=== PATIENT | female | born 1960 | race Caucasian/White ===

== ENCOUNTER → 2017-03-19 | Outpatient (CLI) | payer OTHER ==
[~2017-03-19] MED LIST: FLNIN NAE; LVQ/500 PO; NAPR1TAB9 PO; OXYC1TAB3 PO; PSEU30TA20 PO; TRAM-10 PO
== END | disposition home or self-care (01) ==
LOC: C.PAPS 09:00
PROVIDERS: ATTEND Internal Medicine
DX: Z12.4 Encounter for screening for malignant neoplasm of cervix (principal); Z78.0 Asymptomatic menopausal state

== ENCOUNTER → 2017-04-16 | Outpatient (CLI) | payer OTHER ==
--- NOTE | 2017-04-17 07:55 | MAMMOGRAPHY REPORT ---
BILATERAL DIGITAL SCREENING MAMMOGRAM TOMOSYNTHESIS WITH CAD: 04/16/2017 CLINICAL HISTORY: Routine screening. Patient has no complaints. TECHNIQUE: Breast tomosynthesis in addition to standard 2D mammography was performed. Current study was also evaluated with a Computer Aided Detection (CAD) system. COMPARISON: Comparison is made to exams dated: 06/29/2016 mammogram, 06/23/2015 mammogram, 05/31/2014 mammogram, 06/11/2013 mammogram, 06/04/2012 mammogram, and 05/11/2011 mammogram. BREAST COMPOSITION: There are scattered areas of fibroglandular density in both breasts. FINDINGS: No suspicious mass, architectural distortion or cluster of microcalcifications is seen. IMPRESSION: ACR BI-RADS CATEGORY 1: NEGATIVE There is no mammographic evidence of malignancy. A 1 year screening mammogram is recommended. The pa tient will receive written notification of the results. Approximately 10% of breast cancers are not detected with mammography. A negative mammographic report should not delay biopsy if a clinically suggestive mass is present. Delores mccullough/penquoc:04/16/2017 18:28:12 Lpn Rn: January DENISE(R)(M), [facility] letter sent: Normal 1/2 BI-RADS Code: ACR BI-RADS Category 1: Negative
== END | disposition home or self-care (01) ==
LOC: C.MAMM 13:45
PROVIDERS: ATTEND Internal Medicine
DX: Z12.31 Encounter for screening mammogram for malignant neoplasm of breast (principal)

== ENCOUNTER → 2017-05-22 | Outpatient (CLI) | payer OTHER ==
[~2017-05-22] MED LIST changes: -LVQ/500 PO; -OXYC1TAB3 PO; -TRAM-10 PO
[2017-05-22 12:58] LABS: BASO % 1.1 %; BASO ABS # 0.03 K/uL (0-0.2); COMPLETE YES; HEMATOCRIT 44.1 % (37-47); IG% 0.4 %; LYMPH % 36.7 %; LYMPH ABS # 1.02 K/uL (1.2-3.4); MEAN CELL VOLUME 94.8 fL (80-100); MEAN CORPUSCULAR HEMOGLOBIN 31.4 pg (25-34); MEAN CORPUSCULAR HGB CONC 33.1 g/dl (32-36); MEAN PLATELET VOLUME 10.7 fL (7.4-10.4); MONO % 15.5 %; NEUT % 46.3 %; PLATELET COUNT 169 K/uL (130-400); RED BLOOD COUNT 4.65 M/uL (4.2-5.4); WHITE BLOOD COUNT 2.78 K/uL (4.8-10.8)
[2017-05-22 13:11] LABS: ALT/SGPT 182 U/L (12-78); AST/SGOT 113 U/L (15-37); BLOOD UREA NITROGEN 6 mg/dl (7-18); BUN/CREATININE RATIO 9.5 (10-20); CALCIUM 9.1 mg/dl (8.5-10.1); CARBON DIOXIDE 26 mmol/L (21-32); CHLORIDE 107 mmol/L (98-107); CHOLESTEROL 150 mg/dl (0-200); CREATININE 0.61 mg/dl (0.60-1.20); GLUCOSE 109 mg/dl (70-99); POTASSIUM 3.8 mmol/L (3.5-5.1); SODIUM 140 mmol/L (136-145); TRIGLYCERIDES 153 mg/dl (0-150); VERY LOW DENSITY LIPOPROT CALC 31 mg/dl
[2017-05-22 13:34] LABS: ALKALINE PHOSPHATASE 808 U/L (45-117); CHOLESTEROL/HDL RATIO 6.3; HDL CHOLESTEROL 24 mg/dl
== END | disposition home or self-care (01) ==
LOC: C.LABSPEC 12:29
PROVIDERS: ATTEND Internal Medicine
DX: R53.83 Other fatigue (principal); Z00.01 Encounter for general adult medical examination with abnormal findings

== ENCOUNTER → 2017-05-24 | Outpatient (CLI) | payer OTHER ==
[~2017-05-24] MED LIST changes: +LVQ/500 PO; +OXYC1TAB3 PO; +TRAM-10 PO
--- NOTE | 2017-05-24 08:37 | DIAGNOSTIC IMAGING REPORT ---
ULTRASOUND RIGHT UPPER QUADRANT ABDOMEN CLINICAL HISTORY: Elevated hepatic transaminases. COMPARISON STUDY: No priors. TECHNIQUE: Real-time, grayscale, and color flow sonography of the right upper quadrant of the abdomen was performed. Images are reviewed in the transverse and longitudinal planes. FINDINGS: Liver: The liver is normal in size and echotexture. There is no intrahepatic biliary ductal dilatation. The main portal vein is patent. Gallbladder: The gallbladder is surgically absent. The common bile duct measures up to 0.7 cm in diameter. Pancreas: Visualized portions of the pancreatic head and body are normal in appearance. The splenic vein is patent. Right kidney: Survey images of the right kidney demonstrate normal size and echotexture. There is no hydronephrosis. Ascites: None. IMPRESSION: 1. The liver is normal in size and homogeneous in echotexture. 2. Status post cholecystectomy. Electronically signed by: Yaron Babb M.D. 05/24/2017 8:36 AM Dictated Date/Time: 05/24/2017 8:35 AM
== END | disposition home or self-care (01) ==
LOC: C.ULTR 07:43
PROVIDERS: ATTEND Internal Medicine
DX: R74.8 Abnormal levels of other serum enzymes (principal)

== ENCOUNTER → 2017-05-27 | Outpatient (CLI) | payer OTHER ==
[2017-05-27 18:47] LABS: HEPATITIS B AB NEG
[2017-05-27 19:40] LABS: LYME DISEASE AB IGG NEG (NEG)
[2017-05-27 19:45] LABS: LYME DISEASE AB IGM EQUIVOCAL (NEG)
[2017-05-31 09:31] LABS: 18KDIGG BAND NONREACTIVE (NONREACTIVE); 23KDIGG BAND NONREACTIVE (NONREACTIVE); 23KDIGM BAND REACTIVE (NONREACTIVE); 28KDIGG BAND NONREACTIVE (NONREACTIVE); 30KDIGG BAND NONREACTIVE (NONREACTIVE); 39KDIGG BAND NONREACTIVE (NONREACTIVE); 39KDIGM BAND NONREACTIVE (NONREACTIVE); 41KDIGG BAND NONREACTIVE (NONREACTIVE); 41KDIGM BAND REACTIVE (NONREACTIVE); 45KDIGG BAND NONREACTIVE (NONREACTIVE); 58KDIGG BAND NONREACTIVE (NONREACTIVE); 66KDIGG BAND REACTIVE (NONREACTIVE); 93KDIGG BAND NONREACTIVE (NONREACTIVE)
== END | disposition home or self-care (01) ==
LOC: C.LABSPEC 16:10
PROVIDERS: ATTEND Internal Medicine
DX: R94.5 Abnormal results of liver function studies (principal)

== ENCOUNTER 2017-05-28 11:41 | Emergency (ER) | payer OTHER ==
[~2017-05-28] VITALS: Ht 160 cm; Wt 57.8 kg
[~2017-05-28 11:41] MED LIST changes: -LVQ/500 PO; -OXYC1TAB3 PO; -TRAM-10 PO
[2017-05-28 11:49] VITALS: TEMP 36.9; Ht 160 cm; Wt 57.8 kg
[2017-05-28 12:31] LABS: BASO % 0.2 %; BASO ABS # 0.02 K/uL (0-0.2); COMPLETE YES; EOS % 1.3 %; HEMATOCRIT 44.6 % (37-47); IG% 0.5 %; LYMPH ABS # 2.85 K/uL (1.2-3.4); MEAN CELL VOLUME 93.9 fL (80-100); MEAN CORPUSCULAR HEMOGLOBIN 30.7 pg (25-34); MEAN CORPUSCULAR HGB CONC 32.7 g/dl (32-36); MEAN PLATELET VOLUME 9.5 fL (7.4-10.4); MONO % 14.7 %; NEUT % 53.3 %; PLATELET COUNT 531 K/uL (130-400); RED BLOOD COUNT 4.75 M/uL (4.2-5.4); WHITE BLOOD COUNT 9.51 K/uL (4.8-10.8)
[2017-05-28 12:40] LABS: PARTIAL THROMBOPLASTIN RATIO 1.1; PROTHROMBIN TIME (PATIENT) 10.5 SECONDS (9.0-12.0)
[2017-05-28 12:40] LABS: URINE APPEARANCE CLEAR (CLEAR); URINE BILIRUBIN NEG (NEG); URINE COLOR YELLOW; URINE NITRITE NEG (NEG); URINE SPECIFIC GRAVITY 1.015 (1.000-1.030); UROBILINOGEN NEG (NEG); ZZUR CULT IF INDIC CLEAN CATCH NO
[2017-05-28 12:44] LABS: MANUAL MICROSCOPIC REQUIRED? NO; REVIEW REQ? NO
[2017-05-28] MEDS ORDERED: LVQ/500 PO (13:04)
[2017-05-28] MEDS ORDERED: TRAM-10 PO (13:04)
[2017-05-28 13:11] LABS: ALT/SGPT 179 U/L (12-78); AST/SGOT 60 U/L (15-37); BLOOD UREA NITROGEN 13 mg/dl (7-18); BUN/CREATININE RATIO 18.6 (10-20); CALCIUM 9.1 mg/dl (8.5-10.1); CARBON DIOXIDE 27 mmol/L (21-32); CHLORIDE 105 mmol/L (98-107); CREATININE 0.71 mg/dl (0.60-1.20); GLUCOSE 87 mg/dl (70-99); MAGNESIUM 2.2 mg/dl (1.8-2.4); POTASSIUM 4.3 mmol/L (3.5-5.1); SODIUM 138 mmol/L (136-145)
[2017-05-28 13:22] LABS: ALB/GLOB RATIO 0.8 (0.9-2); ALKALINE PHOSPHATASE 576 U/L (45-117); THYROID STIMULATING HORMONE 0.843 uIu/ml (0.300-4.500)
[2017-05-28] MEDS ORDERED: OPTIRAY 320 IV PRN (14:15)
--- NOTE | 2017-05-28 15:05 | EMERGENCY ROOM VISIT NOTE ---
History First contact with patient: 11:53 Chief Complaint: ABDOMINAL PAIN Stated Complaint: ABD. PAIN Nursing Triage Summary: triage note; pt reports mid abd pain pt reports she had out pt lab work and ultrasound and pt was found to have elevated liver enzymes. History of Present Illness The patient is a 56 year old female who presents to the Emergency Room via private vehicle accompanied by son with complaints of "abdominal pain". The patient states that about 2 weeks ago she had a cough, and had symptoms of a cold, she then states that she had baseline labs performed by her family doctor , who noted that she had elevations of her liver enzymes. An ultrasound was ordered and performed this past Saturday. No abnormal findings noted. She states that she was given Levaquin for her congestion, and also tramadol by her family doctor for the upper abdominal pain which began on Saturday. She states that the pain is severe, and rates it as an 8/10. She declined any further pain medication at this time. She notes she would like to figure out what is causing her symptoms here today. She is post cholecystectomy 2000. In describes the pain as a severe ache/heavy ache. Review of Systems A complete 10-point Review of Systems was discussed with the patient, with pertinent positives and negatives listed in the History of Present Illness. All remaining Review of Systems questions can be considered negative unless otherwise specified. Past Medical/Surgical History Stomach problems, cholecystectomy, tubal ligation, left inguinal hernia repair, Crohn's disease, degenerative disc disease. Family History Diabetes, heart disease, high blood pressure, cancer, lung disease, cold but her disease Social History Smoking Status: Former Smoker Social History: Patient lives with self. Current/Historical Medications Scheduled Levofloxacin (Levofloxacin), 1 TAB PO DAILY Scheduled PRN Oxycodone Ir (Roxicodone Ir), 1-2 TAB PO Q4H PRN for Pain Tramadol (Ultram), 50 MG PO Q6H PRN for Pain Allergies Coded Allergies: Erythromycin (Verified Allergy, Intermediate, HIVES, 05/28/17) Naproxen (Unverified Allergy, Intermediate, GI SYMPTOMS, 05/28/17) Penicillins (Verified Allergy, Intermediate, HIVES, 05/28/17) Sulfa Drugs (Verified Allergy, Intermediate, HIVES, 05/28/17) Uncoded Allergies: DARVOCET (Allergy, Intermediate, HIVES, 06/17/13) COCONUT-HEADACHE (Allergy, Mild, MIGRAINE, 06/17/13) ONIONS (Allergy, Mild, MIGRAINES, 06/17/13) Physical Exam Vital Signs Date Time Temp Pulse Resp B/P (MAP) Pulse Ox O2 Delivery O2 Flow Rate FiO2 05/28/17 17:20 69 18 154/94 97 Room Air 05/28/17 15:11 67 18 142/97 98 Room Air 05/28/17 13:20 65 05/28/17 13:07 74 18 165/90 98 Room Air 05/28/17 11:49 36.9 84 18 150/92 96 Room Air Physical Exam VITAL SIGNS - Vital signs and nursing notes were reviewed. Stable. GENERAL -56-year-old female appearing her stated age who is in no acute distress but is visibly in pain. Communicates well with provider and answers questions appropriately. SKIN - Without rashes. Not jaundiced. HEAD - NC/AT. EYES - PERRL with EOMI bilaterally. Sclera anicteric. EARS - No deformities of external structures noted on gross examination bilaterally. NOSE - Midline and without cyanosis. No epistaxis or purulent drainage noted. MOUTH/OROPHARYNX - Without perioral cyanosis. LUNGS - Chest wall symmetric without accessory muscle use, intercostals retractions, or central cyanosis. Normal vesicular breath sounds CTA B/L. No wheezes, rales, or rhonchi appreciated. CARDIAC - RRR with S1/S2. No murmur, rubs, or gallops appreciated. ABDOMEN - Abdominal contour normal without pulsations or visible masses. BS normoactive all four quadrants. There is generalized abdominal tenderness, worse in the epigastric region. No palpable masses, hepatosplenomegaly, or ascites noted. EXTREMITIES - No clubbing or peripheral cyanosis. No pretibial edema present. NEUROLOGIC - Cranial nerves II through XII grossly intact. Medical Decision & Procedures ER Provider Diagnostic Interpretation: ABDOMEN AND PELVIS CT WITH IV AND ORAL CONTRAST CT DOSE: 395.01 mGycm HISTORY: Epigastric abdominal pain and diffuse abd pain TECHNIQUE: Multiaxial CT images of the abdomen and pelvis were performed following the use of intravenous and oral contrast. A dose lowering technique was utilized adhering to the principles of ALARA. COMPARISON STUDY: Abdominal ultrasound 05/24/2017. FINDINGS: Mild dependent changes at the lung bases posteriorly. No pneumoperitoneum. No pneumatosis. No fractures within the visualized osseous structures. Cholecystectomy. The liver, pancreas, spleen, adrenal glands, and left kidney are unremarkable. There is a 3 mm stone within the right kidney. No ureteral stones. No hydronephrosis. Mesenteric lymph nodes measure subcentimeter in short axis diameter with the largest lymph node measuring 7 mm. No significant retroperitoneal lymphadenopathy. The bladder, uterus, bilateral adnexa are unremarkable. Surgical clips within the left inguinal region suggests a prior hernia repair. No bowel wall thickening or obstruction. Normal appendix. Suspect a left paracentral/foraminal disc protrusion at L4-L5. IMPRESSION: 1. No bowel wall thickening or obstruction. 2. Normal appendix. 3. Right-sided nephrolithiasis. No ureteral stones. No hydronephrosis. 4. Left paracentral/foraminal disc protrusion at L4-5 resulting in severe left-sided neural foraminal narrowing. Electronically signed by: Juan Barron M.D. 05/28/2017 3:04 PM Dictated Date/Time: 05/28/2017 2:56 PM Laboratory Results 05/28/17 12:05 Red Blood Count 4.75, Mean Corpuscular Volume 93.9, Mean Corpuscular Hemoglobin 30.7, Mean Corpuscular Hemoglobin Concent 32.7, Mean Platelet Volume 9.5, Neutrophils (%) (Auto) 53.3, Lymphocytes (%) (Auto) 30.0, Monocytes (%) (Auto) 14.7, Eosinophils (%) (Auto) 1.3, Basophils (%) (Auto) 0.2, Neutrophils # (Auto ) 5.07, Lymphocytes # (Auto) 2.85, Monocytes # (Auto) 1.40, Eosinophils # (Auto ) 0.12, Basophils # (Auto) 0.02 05/28/17 12:05 Test 05/28/17 12:00 05/28/17 12:05 05/28/17 12:31 05/28/17 16:53 Urine Color YELLOW Urine Appearance CLEAR (CLEAR) Urine pH 6.0 (4.5-7.5) Urine Specific Darwin 1.015 (1.000-1.030) Urine Protein NEG (NEG) Urine Glucose (UA) NEG (NEG) Urine Ketones NEG (NEG) Urine Occult Blood NEG (NEG) Urine Nitrite NEG (NEG) Urine Bilirubin NEG (NEG) Urine Urobilinogen NEG (NEG) Urine Leukocyte Esterase NEG (NEG) White Blood Count 9.51 K/uL (4.8-10.8) Red Blood Count 4.75 M/uL (4.2-5.4) Hemoglobin 14.6 g/dL (12.0-16.0) Hematocrit 44.6 % (37-47) Mean Corpuscular Volume 93.9 fL (80-100) Mean Corpuscular Hemoglobin 30.7 pg (25-34) Mean Corpuscular Hemoglobin Concent 32.7 g/dl (32-36) Platelet Count 531 K/uL (130-400) Mean Platelet Volume 9.5 fL (7.4-10.4) Neutrophils (%) (Auto) 53.3 % Lymphocytes (%) (Auto) 30.0 % Monocytes (%) (Auto) 14.7 % Eosinophils (%) (Auto) 1.3 % Basophils (%) (Auto) 0.2 % Neutrophils # (Auto) 5.07 K/uL (1.4-6.5) Lymphocytes # (Auto) 2.85 K/uL (1.2-3.4) Monocytes # (Auto) 1.40 K/uL (0.11-0.59) Eosinophils # (Auto) 0.12 K/uL (0-0.5) Basophils # (Auto) 0.02 K/uL (0-0.2) RDW Standard Deviation 47.5 fL (36.4-46.3) RDW Coefficient of Variation 13.8 % (11.5-14.5) Immature Granulocyte % (Auto) 0.5 % Immature Granulocyte # (Auto) 0.05 K/uL (0.00-0.02) Prothrombin Time 10.5 SECONDS (9.0-12.0) Prothromb Time International Ratio 1.0 (0.9-1.1) Activated Partial Thromboplast Time 28.7 SECONDS (21.0-31.0) Partial Thromboplastin Ratio 1.1 Anion Gap 6.0 mmol/L (3-11) Est Creatinine Clear Calc Drug Dose 74.0 ml/min Estimated GFR () 111.1 Estimated GFR (Non- 95.9 BUN/Creatinine Ratio 18.6 (10-20) Calcium Level 9.1 mg/dl (8.5-10.1) Magnesium Level 2.2 mg/dl (1.8-2.4) Total Bilirubin 0.5 mg/dl (0.2-1) Aspartate Amino Transf (AST/SGOT) 60 U/L (15-37) Alanine Aminotransferase (ALT/SGPT) 179 U/L (12-78) Alkaline Phosphatase 576 U/L (45-117) Total Creatine Kinase 62 U/L (26-192) Creatine Kinase MB < 0.5 ng/ml (0.5-3.6) Creatine Kinase MB Ratio (0-3.0) Troponin I < 0.015 ng/ml (0-0.045) Total Protein 8.4 gm/dl (6.4-8.2) Albumin 3.8 gm/dl (3.4-5.0) Globulin 4.6 gm/dl (2.5-4.0) Albumin/Globulin Ratio 0.8 (0.9-2) Lipase 157 U/L (73-393) Thyroid Stimulating Hormone (TSH) 0.843 uIu/ml (0.300-4.500) Lactic Acid Level 1.1 mmol/L (0.4-2.0) Hepatitis C Antibody NEG (NEG) Medications Administered Medications (Trade) Dose Ordered Sig/Yousif Route Start Time Stop Time Status Last Admin Dose Admin Oxycodone HCl (Roxicodone Immediate Rel 5MG Home Pack) 1 [employer] STK-MED ONCE PO 05/28/17 17:29 05/28/17 17:30 DC 05/28/17 17:29 [facility] Patient was seen and evaluated as above. She presents to us today with epigastric abdominal pain, and elevated liver function testing. She has been seen by her family doctor, and is to see a GI specialist on the of this month. She notes she is here because the pain is worse. She declines pain medication upon entry. Previous visit was reviewed, as well as her previous labs that she furnishes as performed by her family doctor. It appears she has had mono testing and this was found to be positive, as well as one of the bands of the Lyme test with Western blot pending. There also appears to be alkaline phosphatase, AST and ALT elevation. Due to the amount of pain the patient was experiencing, I at this time will recommend CT scan of the abdomen and pelvis with IV and oral contrast. I did initially order a repeat ultrasound, but after discussing the ultrasound results with the ultrasound team, it appears that this was a successful ultrasound and that repeating would not be of any benefit. The ultrasound was then canceled. CT scan pending. The blood work then reveals no leukocytosis or concerning anemia. Platelet count has significantly increased and is now 531. Coags are normal. Patient's metabolic panel reveals AST at 60, ALT at 179, and alkaline phosphatase high at 576. These have all decreased compared to previous. Patient's troponin is negative. The patient's EKG is stable compared to previous. Lipase is normal, and TSH is also normal. I then discussed the case with the attending physician after obtaining the CT scan result which did not reveal any clear etiology of the patient's upper abdominal pain. Patient's back pain certainly can be explained by the spine results. Decision was made to then consult the GI specialist that the patient would like to follow up with on the . I then spoke on the phone with Dr. THIBODEAUX. He recommended that I obtain specific hepatitis A, B and C antibodies as well as antigens as well as AMA, DANN, CMP, and ceruloplasmin levels. I then checked the patient's record here and found some of the hepatitis tests, but not all therefore initiated these. I then received a call from Dr. Hanley, and we discussed how I had ordered many tests of which he had already ordered just a few days ago. I was unaware of this, as I was not able to see all of the tests that he ordered just a few days ago on my side of the [employer] system unfortunately. I then after speaking with him in detail, canceled the tests that he had already ordered (would be duplicated), and left only the tests that still need to be performed as recommended by the GI specialist. I then discussed with our supportive employment case manager whether or not the patient's GI specialist would participate with her insurance as this was certainly a concern by the patient. It was identified to be most likely would not, and the patient's family then called the back of the insurance card and identify that Dr. Trevor Armstrong, GI specialist in the area would participate with her insurance. I then enlisted the help of our supportive employment case manager to help establish an appointment for the patient. She is also to call her family doctor tomorrow , Dr. Caldera for further evaluation and management. It was recommended by Dr. Thibodeaux that the patient has repeat LFTs performed on Saturday to ensure that they're trending down as they are indicating today. The differentials as discussed with the GI specialist included but not limited to cholestasis, obstructive bile duct, among others. I did discuss the Tylenol usage with the patient, and although she has used some in the recent past, it does not appear that she has had any toxic levels to correlate with her levels seen today. Although the patient may have had alcohol consumption in the past, her elevation of the ALT higher than the AST indicates that this is probably from something other than alcohol use. Additionally, the patient at time of discharge notes that she would like something additional for pain, and given her state of problems in the past with ibuprofen, I will initiate oxycodone immediate release, as she states that the tramadol made her feel very odd, and it appears that she has had oxycodone without problem. She will be given a short course for the pain that is not managed by [id number] meds, but is important note that I recommend no Tylenol at this time because of the elevation of the liver enzymes, and certainly want to refrain from anything that can upset the stomach such as ibuprofen. This is why he chose the oxycodone. In addition, there were no red flags in the [place] drug monitoring system. The patient is to call her family doctor tomorrow, and return with any worsening of her symptoms. She appears stable for outpatient management. She was educated upon worrisome symptoms in which to return, had questions answered prior to discharge, and was discharged home in good condition. It was recommended the patient may begin a PPI. Case was discussed with the emergency Department attending physician. In evaluation treatment of this patient the following differential diagnoses radiographs: Cholestasis, common bile duct stone, pancreatitis, WI, PE, GERD, among others. Impression Primary Impression: Abdominal pain Departure Information Dispostion Home / Self-Care Condition GOOD Prescriptions Oxycodone Ir (Roxicodone Ir) 5 Mg Tab 1-2 TAB PO Q4H Y for Pain, #15 TAB For Initial Treatment Prov: Dominic Partida PA-C 05/28/17 Referrals Dario Hanson M.D. (PCP) Elliott Morrow D.O. Case, Trevor Deutsch D.O. Patient Instructions [facility] Additional Instructions You have been treated in the Emergency Department your Abdominal Pain. Laboratory results and imaging studies have ruled out any emergent causes for your abdominal pain which would warrant admission or surgery. Drink plenty of water and stay well hydrated. As with any trip to the Emergency Department, you should follow-up with your Primary Care Provider from today's visit. Please expect a phone call from our supportive employment case manager regarding an appointment with Dr. armstrong. Return to the emergency department if your symptoms persist despite treatment plan outlined above or if the following symptoms occur: increased fevers, chills , worsening nausea/vomiting, blood in your stool or urine. Please return with any new/concerning symptoms. Thank you for your time. Problem Qualifiers Primary Impression: Abdominal pain Abdominal location: epigastric Qualified Codes: R10.13 - Epigastric pain
[2017-05-28 17:20] VITALS: BP 154/94; PULSE 69; O2SAT 97
[2017-05-28] MEDS ORDERED: OXYCODONE IR HOME PACK PO ONE (17:29)
[2017-05-28] MEDS ORDERED: OXYC1TAB3 PO (17:32)
== END 2017-05-28 17:39 | disposition home or self-care (01) ==
LOC: C.EDB 11:42 → C.EDA 17:39
DX: R10.13 Epigastric pain (principal); R74.8 Abnormal levels of other serum enzymes; K50.90 Crohn's disease, unspecified, without complications; Z87.891 Personal history of nicotine dependence; Z90.49 Acquired absence of other specified parts of digestive tract; Z83.3 Family history of diabetes mellitus; Z82.49 Family history of ischemic heart disease and other diseases of the circulatory system

== ENCOUNTER → 2017-06-03 | Outpatient (CLI) | payer OTHER ==
[~2017-06-03] MED LIST changes: -FLNIN NAE; +LVQ/500 PO; -NAPR1TAB9 PO; +OXYC1TAB3 PO; -PSEU30TA20 PO; +TRAM-10 PO
[2017-06-03 15:52] LABS: ALKALINE PHOSPHATASE 319 U/L (45-117); ALT/SGPT 51 U/L (12-78); AST/SGOT 23 U/L (15-37)
== END | disposition home or self-care (01) ==
LOC: C.LABSPEC 14:29
PROVIDERS: ATTEND Internal Medicine
DX: R74.8 Abnormal levels of other serum enzymes (principal)

== ENCOUNTER → 2017-06-04 | Outpatient (CLI) | payer OTHER ==
--- NOTE | 2017-06-04 20:51 | DIAGNOSTIC IMAGING REPORT ---
ORBIT RADIOGRAPHS 3 VIEWS HISTORY: pre-MRI screening. COMPARISON: None. FINDINGS: There are no radiopaque foreign bodies identified within the orbits. IMPRESSION: No radiopaque foreign bodies identified within the orbits. Electronically signed by: Juan Barron M.D. 06/04/2017 8:50 PM Dictated Date/Time: 06/04/2017 8:49 PM
--- NOTE | 2017-06-04 21:57 | DIAGNOSTIC IMAGING REPORT ---
MRCP HISTORY: Generalized ABDOMINAL PAIN, ELEVATED LIVER ENZYMES TECHNIQUE: MRCP of the abdomen was performed without the use of intravenous contrast according to standard departmental protocol. COMPARISON STUDY: Abdomen and pelvis CT 05/28/2017. FINDINGS: The lung bases are clear. Cholecystectomy. The liver, spleen, adrenal glands, pancreas, and kidneys are unremarkable. No retroperitoneal lymphadenopathy. Normal caliber common bile duct measuring up to 6 mm. No filling defects within the common bile duct. The main pancreatic duct is also normal in course and caliber. No intrahepatic bile duct dilatation. IMPRESSION: 1. Normal caliber intra and extrahepatic bile ducts. No filling defects within the common bile duct. 2. Cholecystectomy. Electronically signed by: Juan Barron M.D. 06/04/2017 9:56 PM Dictated Date/Time: 06/04/2017 9:52 PM
== END | disposition home or self-care (01) ==
LOC: C.MRI 20:06
PROVIDERS: ATTEND Physician Assistant
DX: R10.2 Pelvic and perineal pain (principal); R74.8 Abnormal levels of other serum enzymes

== ENCOUNTER → 2017-07-01 | Day surgery (SDC) | payer OTHER ==
[2017-06-28 15:13] VITALS: Ht 161.3 cm; Wt 59.1 kg
[~2017-07-01] VITALS: Ht 161.3 cm; Wt 59.1 kg
[~2017-07-01] MED LIST changes: +LIDOCAINE HCL 2% 2 ML VIAL (20MG/ML) ONE; -LVQ/500 PO; +MIDAZOLAM HCL 1 MG/ML 2ML VIAL ONE; -OXYC1TAB3 PO; +PROPOFOL IV EMULSION 10 MG/ML 20 ML VIAL IV ONE; -TRAM-10 PO; +TYLER650 PO
--- NOTE | 2017-07-01 15:27 | Endo History and Physical ---
History & Physical Date of Service: Jul 01, 2017. Chief Complaint: ABDOMINAL PAIN Referring Physician: DR. LYLA BOONE History of Present Illness 56 yo CF who presents for EGD secondary to abdominal pain. Past Surgical History Hx Cardiac Surgery: No Hx Internal Defibrillator: No Hx Pacemaker: No Hx Abdominal Surgery: Yes (LITTLE, TUBAL LIGATION) Hx of Implantable Prosthesis: No Hx Post-Op Nausea and Vomiting: No Hx Cancer Surgery: No Hx Thoracic Surgery: No Hx Orthopedic: No Hx Urinary Tract Surgery: No Family History Polyp Social History Smoking Status: Current Every Day Smoker Hx Substance Use: No Hx Alcohol Use: Yes (OCCASIONAL) Allergies Coded Allergies: Erythromycin (Verified Allergy, Intermediate, RASH, 06/28/17) Naproxen (Verified Allergy, Intermediate, GI SYMPTOMS, 07/01/17) Penicillins (Verified Allergy, Intermediate, HIVES, 06/28/17) Sulfa Drugs (Verified Allergy, Intermediate, HIVES, 06/28/17) Uncoded Allergies: DARVOCET (Allergy, Intermediate, HIVES, 06/17/13) COCONUT-HEADACHE (Allergy, Mild, MIGRAINE, 06/17/13) ONIONS (Allergy, Mild, MIGRAINES, 06/17/13) Current Medications Reported Home Medications Medications Dose Route/Sig Max Daily Dose Days Date Category Tylenol Arthitis Ext Rel (Acetaminophen) 650 Mg Ertab 650 Mg PO Q8H PRN 06/28/17 Reported Vital Signs Weight (Kilograms): 59.09 Height (Feet): 5 Height (Inches): 3.5 Date Time Temp Pulse Resp B/P (MAP) Pulse Ox O2 Delivery O2 Flow Rate FiO2 07/01/17 15:12 37 67 18 116/84 (95) 97 Room Air Physical Exam General Appearance: WD/WN, no apparent distress Respiratory/Chest: Auscultation: breath sounds normal Cardiovascular: Heart Auscultation: RRR Abdomen: Bowel Sounds: normal Inspection & Palpation: soft, non-distended, no tenderness, guarding & rebound Assessment and Plan Assessment: 56 yo CF who presents for EGD secondary to abdominal pain. Plan: Proceed with EGD.
--- NOTE | 2017-07-01 16:42 | GI REPORT ---
Procedure Date: 07/01/2017 4:19 PM Procedure: Upper GI endoscopy Indications: Epigastric abdominal pain Medicines: Monitored Anesthesia Care Complications: No immediate complications. Estimated Blood Loss: Estimated blood loss: none. Procedure: Pre-Anesthesia Assessment: - Prior to the procedure, a History and Physical was performed, and patient medications and allergies were reviewed. The patient's tolerance of previous anesthesia was also reviewed. The risks and benefits of the procedure and the sedation options and risks were discussed with the patient. All questions were answered, and informed consent was obtained. Prior Anticoagulants: The patient has taken no previous anticoagulant or antiplatelet agents. ASA Grade Assessment: II - A patient with mild systemic disease. After reviewing the risks and benefits, the patient was deemed in satisfactory condition to undergo the procedure. After obtaining informed consent, the endoscope was passed under direct vision. Throughout the procedure, the patient's blood pressure, pulse, and oxygen saturations were monitored continuously. The scope was introduced through the mouth, and advanced to the second part of duodenum. The upper GI endoscopy was accomplished without difficulty. The patient tolerated the procedure well. Findings: The examined esophagus was normal. A medium-sized hiatus hernia was present. Biopsies were taken with a cold forceps in the gastric antrum for Helicobacter pylori testing. The examined duodenum was normal. Biopsies for histology were taken with a cold forceps for evaluation of celiac disease. Impression: - Normal esophagus. - Medium-sized hiatus hernia. - Normal examined duodenum. Biopsied. - Biopsies were taken with a cold forceps for Helicobacter pylori testing. Recommendation: - Resume previous diet. - Continue present medications. - Await pathology results. - Return to primary care physician as previously scheduled. Trevor Song DO 07/01/2017 4:42:22 PM This report has been signed electronically. Note Initiated On: 07/01/2017 4:19 PM I attest to the content of the Intraoperative Record and orders documented therein, exceptions below
--- NOTE | 2017-07-01 16:43 | Discharge Instructions ---
Endoscopy Patient Instructions Date / Procedure(s) Performed Jul 01, 2017. EGD Allergy Information Coded Allergies: Erythromycin (Verified Allergy, Intermediate, RASH, 06/28/17) Naproxen (Verified Allergy, Intermediate, GI SYMPTOMS, 07/01/17) Penicillins (Verified Allergy, Intermediate, HIVES, 06/28/17) Sulfa Drugs (Verified Allergy, Intermediate, HIVES, 06/28/17) Uncoded Allergies: DARVOCET (Allergy, Intermediate, HIVES, 06/17/13) COCONUT-HEADACHE (Allergy, Mild, MIGRAINE, 06/17/13) ONIONS (Allergy, Mild, MIGRAINES, 06/17/13) Discharge Date / Findings Jul 01, 2017. Hiatal hernia Medication Instructions OK to resume all medications today as prescribed Reported Home Medications Medications Dose Route/Sig Max Daily Dose Days Date Category Tylenol Arthitis Ext Rel (Acetaminophen) 650 Mg Ertab 650 Mg PO Q8H PRN 06/28/17 Reported Provider Instructions Activity Restrictions - No exercising or heavy lifting for 24 hours. - Do not drink alcohol the day of the procedure. - Do not drive a car or operate machinery until the day after the procedure. - Do not make any important decisions or sign important papers in 24 hours after the procedure. Following Day: - Return to full activity which may include returning to work/school. Diet Start your diet with liquids and light foods (jello, soup, juice, toast). Then eat your usual diet if not nauseated. Treatment For Common After Affects For mild abdominal pain, bloating, or excessive gas: - Rest - Eat lightly - Lie on right side Follow-Up Information Follow-up with DR. LYLA BOONE as scheduled Anesthesia Information What You Should Know You have had a procedure that required some medicine to reduce anxiety and discomfort. This treatment is called moderate sedation. After receiving the treatment, you may be sleepy, but you will be able to breathe on your own. The effects of the treatment may last for several hours. Follow these instructions along with Activity/Diet recommendations noted above: * Do NOT do anything where dizziness or clumsiness would be dangerous. * Rest quietly at home today, then you can be up and about tomorrow. * Have a responsible person stay with you the rest of today. * You may have had an I.V. today. If so, you may take the dressing off later today. Recommendations Call your doctor if: * Trouble breathing * Continuous vomiting for more than 24 hours * Temperature above 101 degrees * Severe abdominal pain or bloating * Pain not relieved by pain medicine ordered * There is increased drainage or redness from any incision * A large amount of rectal bleeding greater than 2-3 tablespoons. (If you had a polyp/s removed or have hemorrhoids, a small amount of blood - from the rectum is to be expected.) * You have any unanswered questions or concerns. IN THE EVENT OF A SERIOUS EMERGENCY, GO TO THE NEAREST EMERGENCY ROOM Your discharge instructions were prepared by provider Trevor Song. Patient Instructions Signature Page Luz Larson Patient (or Guardian) Signature/Date: I have read and understand the instructions given to me by my caregivers. Caregiver/RN/Doctor Signature/Date: The above-named patient and/or guardian has received patient instructions on this date. + Original Patient Signature Page (only) stays with chart. Please make copy for patient.
--- NOTE | 2017-07-01 17:02 | Anesthesiology Progress Note ---
Anesthesia Post Op Note Date & Time Jul 01, 2017 at 17:02 Vital Signs Pain Intensity: 0 Vital Signs Past 12 Hours Date Time Temp Pulse Resp B/P (MAP) Pulse Ox O2 Delivery O2 Flow Rate FiO2 07/01/17 16:45 67 20 94/55 (68) 97 Room Air 07/01/17 15:12 37 67 18 116/84 (95) 97 Room Air Notes Mental Status: alert / awake / arousable, participated in evaluation Pt Amnestic to Procedure: Yes Nausea / Vomiting: adequately controlled Pain: adequately controlled Airway Patency, RR, SpO2: stable & adequate BP & HR: stable & adequate Hydration State: stable & adequate Anesthetic Complications: no major complications apparent
[2017-07-01 17:17] VITALS: BP 125/79; PULSE 65; O2SAT 97
== END | disposition home or self-care (01) ==
LOC: C.GI 14:15
PROVIDERS: ATTEND Internal Medicine
DX: R10.13 Epigastric pain (principal); K44.9 Diaphragmatic hernia without obstruction or gangrene; M19.90 Unspecified osteoarthritis, unspecified site; Z90.49 Acquired absence of other specified parts of digestive tract; Z98.51 Tubal ligation status; F17.200 Nicotine dependence, unspecified, uncomplicated; Z88.0 Allergy status to penicillin; Z88.1 Allergy status to other antibiotic agents; Z88.2 Allergy status to sulfonamides

== ENCOUNTER → 2017-07-22 | Outpatient (CLI) | payer OTHER ==
[~2017-07-22] MED LIST changes: -LIDOCAINE HCL 2% 2 ML VIAL (20MG/ML) ONE; -MIDAZOLAM HCL 1 MG/ML 2ML VIAL ONE; -PROPOFOL IV EMULSION 10 MG/ML 20 ML VIAL IV ONE
[2017-07-22 19:27] LABS: ALKALINE PHOSPHATASE 140 U/L (45-117); ALT/SGPT 41 U/L (12-78); AST/SGOT 32 U/L (15-37)
== END | disposition home or self-care (01) ==
LOC: C.LABSPEC 13:15
PROVIDERS: ATTEND Internal Medicine
DX: R74.8 Abnormal levels of other serum enzymes (principal)

== ENCOUNTER 2025-05-21 15:20 | Observation (INO) ==
--- NOTE | 2025-05-21 16:13 | Emergency Department Note ---
Impression & Plan Intractable nausea and vomiting, Gastroenteritis, Intractable diarrhea, Hypomagnesemia ED Provider Note HISTORY OF PRESENT ILLNESS: Patient is a 64-year-old female presenting with nausea and diarrhea. Patient reports she has been sick for the last 10 days and not getting any better. She has been seen twice previously in the emergency department. She states that the antinausea medications that she was given most recently on her ER visit have not helped. She reports she continues to be nauseous and have profuse episodes of vomiting. Reports she has been trying to stay hydrated but is so nauseous it is hard to stay hydrated. She denies any dysuria or hematuria. Denies any fevers. She denies any recent travel. She reports generalized abdominal pain but reports its secondary to her frequent bowel movements. She denies any chest pain or shortness of breath. ROS: as above PHYSICAL EXAM: Constitutional: Patient appears in no acute distress. HENT: Head: Normocephalic and atraumatic. Eyes: EOMI, PERRL Mouth/Throat: Mucous membranes moist. Neck: Trachea midline. Neck supple. Cardiovascular: RRR, No murmurs, rubs or gallops. Intact distal pulses. Pulmonary/Chest: No respiratory distress. Breath sounds clear and equal bilaterally. No wheezes or rales. Abdominal: Abdomen soft, no tenderness, rebound or guarding. Musculoskeletal: No edema, tenderness or deformity noted. Skin: Warm and dry. No rash, erythema, pallor or cyanosis Psychiatric: Appropriate mood and affect for situation. Neurological: Alert and keenly responsive. CN II-XII grossly intact, moving all extremities equally and fully. MDM: - Vitals signs showed hypertension - History obtained via patient. History as above. - Chronic conditions affecting care: None - Differential diagnoses include, but are not limited to: Electrolyte abnormality; dehydration; bowel obstruction; UA; viral syndrome - Order placed for continuous cardiac monitoring. At this time, monitor showed rate of 64 bp with normal sinus rhythm, per my interpretation. - External medical records reviewed. Hospitalist consult note dated 05/18/2025 was reviewed. Patient's workup in the emergency department was grossly unremarkable. It was recommended that she be discharged home and follow-up with outpatient telehealth in the next 24 to 48 hours. She was prescribed Zofran 4 mg ODT. - Laboratory workup interpreted by myself showed normal WBC; hypomagnesemia (Mg 1.6); normal AST/ALT; normal lipase; normal troponin - UA negative for infection - C diff and stool PCR ordered. - Patient given 1L NS, 5 mg IV compazine, 12.5 mg IV benadryl for nausea. Given 1g IV magnesium for electrolyte replacement. - Patient reports feeling unwell and unable to go home, given that she has tried outpatient management over the last week without any improvement in symptoms. Will discuss case with hospitalist service. -Considered obtaining CT abdomen/pelvis, however the patient has no significant reproducible abdominal pain on examination and just had a negative CT scan during her visit in the ER a few days ago. - Discussion was had with dependency case manager about patient's case and need for admission - Hospitalist consulted for admission - Patient admitted to [facility] hospitalist service for further evaluation and management. ASSESSMENT AND PLAN: Diagnosis: Intractable nausea and vomiting; intractable diarrhea; gastroenteritis; hypomagnesemia Plan: Admit Past Med/Surg History Problem List (Updated 05/21/25 @ 17:30 by Michelle Britt MD) Hypomagnesemia (Acute) Intractable diarrhea (Acute) Gastroenteritis (Acute) Intractable nausea and vomiting (Acute) Gastroenteritis (Acute) Intractable nausea and vomiting (Acute) Dehydration (Acute) COVID-19 (Acute) Neck mass Otitis externa Lyme disease Abdominal pain (Acute) Social History Smoking Status: Current every day smoker Tobacco Type: E-cigarettes / Vaping Preferred Language: Taiwanese marital status: current occupational status: employed Feels Safe at Home: Yes Allergies Allergies Allergy/AdvReac Type Severity Reaction Status Date / Time erythromycin base Allergy Intermediate RASH Verified 05/21/25 17:16 naproxen Allergy Intermediate GI SYMPTOMS Verified 05/21/25 17:16 Penicillins Allergy Intermediate HIVES Verified 05/21/25 17:16 Sulfa (Sulfonamide Allergy Intermediate HIVES Verified 05/21/25 17:16 Antibiotics) acetaminophen Allergy Mild Hives Verified 04/28/25 08:09 [From Darvocet-N] propoxyphene Allergy Mild Hives Verified 05/21/25 17:16 [From Darvocet-N] coconut AdvReac Mild Migraine Verified 05/21/25 17:16 onion AdvReac Mild Migraine Verified 05/21/25 17:16 Home Meds Home Medications Medication Instructions Recorded Confirmed No Known Home Medications 05/21/25 05/21/25 Results & Data (ED) Vital Signs Vital Signs - 24 hr 05/21/25 15:20 05/21/25 15:20 05/21/25 16:13 Temperature 36.7 C Temperature Source Oral Pulse Rate 74 68 Pulse Rate [Finger] Respiratory Rate 18 18 19 Blood Pressure 172/97 H Blood Pressure [Right Arm] Blood Pressure Mean 122 Blood Pressure Mean [Right Arm] Blood Pressure Position [Right Arm] Pulse Oximetry 98 99 Oxygen Delivery Method Room Air Sepsis Recent Fever Within 48 Hours No Sepsis New/Unexplained Change in Mental Status N/A Sepsis Action Taken by Nursing No Action Required 05/21/25 16:16 05/21/25 17:32 Temperature Temperature Source Pulse Rate 62 Pulse Rate [Finger] 65 Respiratory Rate 18 Blood Pressure Blood Pressure [Right Arm] 153/80 H Blood Pressure Mean Blood Pressure Mean [Right Arm] 104 Blood Pressure Position [Right Arm] Sitting Pulse Oximetry 95 Oxygen Delivery Method Room Air Sepsis Recent Fever Within 48 Hours Sepsis New/Unexplained Change in Mental Status Sepsis Action Taken by Nursing Laboratory Data 05/21/25 Unknown 05/21/25 Unknown Lab Results 05/21/25 Range/Units Unknown WBC 9.62 (4.8-10.8) K/ul RBC 4.21 (4.20-5.40) M/uL Hgb 13.0 (12.0-16.0) g/dl Hct 37.7 (37.0-47.0) % MCV 89.5 (80.0-100.0) fL MCH 30.9 (25.0-34.0) pg MCHC 34.5 (32.0-36.0) g/dL RDW Std Deviation 39.4 (36.4-46.3) fL RDW Coeff of Annmarie 12.0 (11.5-14.5) % Plt Count 296 (130-400) K/uL MPV 9.8 (9.4-12.4) fL Immature Gran % (Auto) 0.3 % Neut % (Auto) 61.5 % Lymph % (Auto) 27.9 % [place] % (Auto) 9.9 % Eos % (Auto) 0.2 % Baso % (Auto) 0.2 % Neut # (Auto) 5.92 (1.40-6.50) K/uL Lymph # (Auto) 2.68 (1.20-3.40) K/uL [place] # (Auto) 0.95 H (0.11-0.59) K/uL Eos # (Auto) 0.02 (0.00-0.50) K/uL Baso # (Auto) 0.02 (0.00-0.20) K/uL Immature Gran # (Auto) 0.03 (0.01-0.20) K/uL PT 11.4 (9.0-12.0) Seconds INR 1.1 (0.9-1.1) Sodium 133 L (136-145) mmol/L Potassium 3.6 (3.5-5.1) mmol/L Chloride 98 (98-107) mmol/L Carbon Dioxide 28 (21-32) mmol/L Anion Gap 7 (3-11) BUN 5 L (6-23) mg/dl Creatinine 0.75 (0.6-1.2) mg/dl Est Cr Clr Drug Dosing 63.5 ml/min eGFR 89.40 BUN/Creatinine Ratio 6.7 L (10-20) Glucose 103 H (70-99(Fasting)) mg/dl Calcium 9.3 (8.6-10.3) mg/dl Magnesium 1.6 L (1.7-2.4) mg/dl Total Bilirubin 0.7 (0.2-1.0) mg/dl AST 23 (13-39) U/L ALT 20 (7-52) U/L Alkaline Phosphatase 95 (34-104) U/L Troponin I High Sens 4.2 (0-14) pg/ml Total Protein 7.0 (6.0-8.3) gm/dl Albumin 4.3 (3.4-5.0) gm/dl Globulin 2.7 (2.5-4.0) gm/dl Albumin/Globulin Ratio 1.6 (0.9-2) Lipase 13 (11-82) U/L Urine Color Yellow Urine Appearance Clear (Clear) Urine pH 7.0 (4.5-7.5) Ur Specific [place] 1.001 (1.000-1.030) Urine Protein Negative (Negative) Urine Glucose (UA) Negative (Negative) Urine Ketones Negative (Negative) Urine Blood Negative (Negative) Urine Nitrite Negative (Negative) Urine Bilirubin Negative (Negative) Urine Urobilinogen Negative (Negative) Ur Leukocyte Esterase Negative (Negative) Urine Comment Administered Medications Discontinued Medications Diphenhydramine HCl (Diphenhydramine 50 Mg/Ml Vial) 12.5 mg IV NOW STA Stop: 05/21/25 16:24 Last Admin: 05/21/25 16:30 Dose: 12.5 mg Documented By: SHANTELL Sodium Chloride (Nss) 1,000 mls @ 999 mls/hr IV .Q1H1M ONE Stop: 05/21/25 17:16 Last Admin: 05/21/25 16:31 Dose: 999 mls/hr Documented By: SHANTELL Prochlorperazine (Compazine) 1 mls @ 1 mls/min IV ONE ONE Stop: 05/21/25 16:17 Last Admin: 05/21/25 16:30 Dose: 1 mls/min Documented By: SHANTELL Diphenhydramine HCl 12.5 mg/ (Syringe) 0.25 mls @ 1 mls/hr IV NOW STA Stop: 05/21/25 16:30 Last Admin: 05/21/25 16:25 Dose: Not Given Documented By: SHANTELL Magnesium Sulfate/Dextrose (Magnesium Sulfate / D5w) 1 gm in 100 mls @ 100 mls/hr IV NOW STA Stop: 05/21/25 17:46 Last Admin: 05/21/25 17:29 Dose: 100 mls/hr Documented By: FATMATA Discharge Plan Visit Data Chief Complaint: Flu Like Symptoms Stated Complaint: COVID ED Provider: Michelle Britt Discharge Problem: Intractable nausea and vomiting, Gastroenteritis, Intractable diarrhea, Hypomagnesemia Condition: Fair Forms Stand Alone [facility] Prescriptions Prescriptions: No Action No Known Home Medications Referrals Referrals: Roseanna Calles PA-C [Primary Care Provider] -
[2025-05-21 16:27] LABS: Hematocrit (blood only) 37.7 % (37.0-47.0); Hemoglobin 13.0 g/dl (12.0-16.0); Immature Granulocytes # (auto) 0.03 K/uL (0.01-0.20); Immature Granulocytes % (auto) 0.3 %; Mean Corpuscular Hemoglobin 30.9 pg (25.0-34.0); Mean Corpuscular Volume 89.5 fL (80.0-100.0); Platelet Count 296 K/uL (130-400); RDW Standard Deviation 39.4 fL (36.4-46.3); Red Blood Count 4.21 M/uL (4.20-5.40); White Blood Count 9.62 K/ul (4.8-10.8)
[2025-05-21 16:29] LABS: Appearance Urine Clear (Clear); Glucose Urine UA Negative (Negative)
[2025-05-21] MEDS: diphenhydrAMINE 50 MG/ML VIAL IV STA (16:30)
[2025-05-21] MEDS: PROCHLORPERAZINE 1 ML IV ONE (16:30)
[2025-05-21] MEDS: SODIUM CHLORIDE 0.9% 1,000 ML IV ONE (16:31)
[2025-05-21 16:46] LABS: Alanine Aminotransferase 20.0 U/L (7-52); Albumin Globulin Ratio 1.6 (0.9-2); Albumin Level 4.3 gm/dl (3.4-5.0); Alkaline Phosphatase 95.0 U/L (34-104); Anion Gap 7.0 (3-11); Bilirubin,Total 0.7 mg/dl (0.2-1.0); Blood Urea Nitrogen 5.0 mg/dl (6-23); Calcium 9.3 mg/dl (8.6-10.3); Carbon Dioxide 28.0 mmol/L (21-32); Chloride 98.0 mmol/L (98-107); Creatinine Clr Calc Pharmacy 63.5 ml/min; Globulin 2.7 gm/dl (2.5-4.0); Glucose 103.0 mg/dl (70-99(Fasting)); Lipase 13.0 U/L (11-82); Magnesium 1.6 mg/dl (1.7-2.4); Potassium 3.6 mmol/L (3.5-5.1); Sodium 133.0 mmol/L (136-145); Total Protein 7.0 gm/dl (6.0-8.3)
[2025-05-21 16:59] LABS: INR 1.1 (0.9-1.1); Prothrombin Time 11.4 Seconds (9.0-12.0)
[2025-05-21] MEDS: MAGNESIUM SULFATE / D5W 1 GM/100 ML BAG IV STA (17:29)
[2025-05-21] MEDS ORDERED: ACETAMINOPHEN 325 MG TAB PO PRN (17:48)
[2025-05-21] MEDS ORDERED: PROCHLORPERAZINE 10 MG in SYRINGE 8 ML IV PRN (17:53)
--- NOTE | 2025-05-21 18:04 | History & Physical Report ---
Date of Service May 21, 2025 Assessment & Plan (1) Intractable nausea and vomiting: Plan: -likely 2nd to COVID viral gastroenteritis -symptomatic treatment -zofran/compazine -IVF -F/U BMP (2) Gastroenteritis: Plan: -protonix IV -IVF (3) COVID-19: Plan: -supportive care Plan Heparin SQ for DVT px History of Present Illness Chief Complaint: nausea, vomiting Primary Care Provider: Roseanna Stevan Pt is a 64 y/o female with no significant PMH who presents with with 10 days of feeling nausea and vomiting. She was seen twice in the ER, found to be COVID + 05/18, CT a/p negative for any acute pathology. Her labs do not show any acute abnormalities. She has been having intractable nausea/vomiting and unable to tolerate any PO. Pt is being admitted for further treatment of intractable symptoms of likely viral gastroenteritis. Allergies Allergy/AdvReac Type Severity Reaction Status Date / Time erythromycin base Allergy Intermediate RASH Verified 05/21/25 17:16 naproxen Allergy Intermediate GI SYMPTOMS Verified 05/21/25 17:16 Penicillins Allergy Intermediate HIVES Verified 05/21/25 17:16 Sulfa (Sulfonamide Allergy Intermediate HIVES Verified 05/21/25 17:16 Antibiotics) acetaminophen Allergy Mild Hives Verified 04/28/25 08:09 [From Darvocet-N] propoxyphene Allergy Mild Hives Verified 05/21/25 17:16 [From Darvocet-N] coconut AdvReac Mild Migraine Verified 05/21/25 17:16 onion AdvReac Mild Migraine Verified 05/21/25 17:16 Home Medications Medication Instructions Recorded Confirmed Type No Known Home Medications 05/21/25 05/21/25 History Past Med/Surg History Problem List (Updated 05/21/25 @ 17:30 by Michelle Britt MD) Hypomagnesemia (Acute) Intractable diarrhea (Acute) Gastroenteritis (Acute) Intractable nausea and vomiting (Acute) Gastroenteritis (Acute) Intractable nausea and vomiting (Acute) Dehydration (Acute) COVID-19 (Acute) Neck mass Otitis externa Lyme disease Abdominal pain (Acute) Social History Smoking Status: Current every day smoker Tobacco Type: E-cigarettes / Vaping Preferred Language: [place] marital status: current occupational status: employed Feels Safe at Home: Yes Review of Systems Review of Systems: CONST: Negative for fever, body aches and chills. HENT: Negative for neck pain/stiffness, headache, congestion, sore throat, swelling. EYES: Negative for discharge/pain or vision changes. RESP: Negative for cough/hemoptysis and shortness of breath. CV: Negative chest pain, difficulty breathing, palpitations. ABD: Negative pain, +nausea, vomiting, diarrhea. : Negative increase frequency, dysuria, blood in urine or stool. MUSC: Negative for muscle aches, edema. SKIN: Negative rash, lesions/sores. NEURO: Negative headache, dizziness, weakness. Physical Exam Physical Exam: GENERAL APPEARANCE NAD, activity normal for age, well developed/ well nourished, no cyanosis, pallor, or diaphoresis. EYES lids/conjunctiva normal. EARS/NOSE/THROAT Mucous membranes moist, nares normal, lips/teeth normal uvula midline without oral pharyngeal erythema, exudate or swelling TMs normal bilaterally. No lymphangitis/lymphedema. HEAD/NECK normocephalic atraumatic, no facial trauma, neck is supple. RESPIRATORY respiratory effort normal, speaks in full sentences, no tripod position, no accessory muscle use. Lungs clear to auscultation without rhonchi, wheezes, rales CARDIAC Regular rate and rhythm, no edema. ABDOMINAL Soft, ND/NT. No evidence of fluid wave. No pulsatile masses on exam, rebound tenderness, Pickett sign or pain over Mcburney's point. MUSCLES/EXTREMITIES No abnormal range of motion, no swelling. SKIN Warm, pink and dry. No rashes, dermatoses, petechiae or lesions. NEUROLOGICAL Speech is clear and appropriate. Normal level of consciousness. Gait and coordination are normal. 5/5 strength in all extremities. PSYCH Normal mood and affect. Judgement/competence is appropriate Results & Data Results & Data Vital Signs (Past 12 Hours) Vital Signs Temp Pulse Pulse Resp BP BP Pulse Ox 05/21/25 17:32 65 18 153/80 H 95 05/21/25 16:16 62 05/21/25 16:13 68 19 99 05/21/25 15:20 18 05/21/25 15:20 36.7 C 74 18 172/97 H 98 O2 Del Method 05/21/25 17:32 Room Air 05/21/25 16:16 05/21/25 16:13 Room Air 05/21/25 15:20 05/21/25 15:20 PG Care Time/CCT Total # of Minutes Spent Total Time Spent with Patient: Total time spent is greater than 50% in coordination of care (as documented) at patient's floor/unit and/or counseling patient: Coding Level of Care Code 73663 INT INP/OBS CARE 2/55MIN Diagnoses Intractable nausea and vomiting R11.2 Gastroenteritis K52.9 COVID-19 U07.1
[2025-05-21] MEDS: PANTOprazole 40 MG/10 ML SYR IV SCH (18:38)
[2025-05-21] MEDS: SODIUM CHLORIDE 0.9% 1,000 ML IV SCH (18:38)
[2025-05-21] MEDS: HEPARIN SOD 5,000 UNIT/0.5 ML VIAL SQ SCH (21:41)
[2025-05-22] MEDS: ONDANSETRON INJ 2 MG/ML 2 ML VIAL IV PRN (06:02)
[2025-05-22 06:26] LABS: Hematocrit (blood only) 34.7 % (37.0-47.0); Hemoglobin 11.8 g/dl (12.0-16.0); Mean Corpuscular Hemoglobin 31.1 pg (25.0-34.0); Mean Corpuscular Volume 91.6 fL (80.0-100.0); Platelet Count 269 K/uL (130-400); RDW Standard Deviation 40.7 fL (36.4-46.3); Red Blood Count 3.79 M/uL (4.20-5.40); White Blood Count 5.84 K/ul (4.8-10.8)
[2025-05-22 06:56] LABS: Anion Gap 5.0 (3-11); Blood Urea Nitrogen 7.0 mg/dl (6-23); Calcium 8.4 mg/dl (8.6-10.3); Carbon Dioxide 27.0 mmol/L (21-32); Chloride 110.0 mmol/L (98-107); Creatinine Clr Calc Pharmacy 65.3 ml/min; Glucose 111.0 mg/dl (70-99(Fasting)); Potassium 3.5 mmol/L (3.5-5.1); Sodium 142.0 mmol/L (136-145)
[2025-05-22 07:28] LABS: Adenovirus F 40/41 PCR Not Detected (NotDetected); Campylobacter PCR Not Detected (NotDetected); Enteroaggregative E.coli(EAEC) Not Detected (NotDetected); Shiga-like Toxin E.coli (STEC) Not Detected (NotDetected); Vibrio species PCR Not Detected (NotDetected)
[2025-05-22] MEDS: CIPROFLOXACIN / D5W 400 MG/200 ML BAG IV SCH (09:15)
--- NOTE | 2025-05-22 09:58 | Hospitalist Progress Note ---
Date of Service May 22, 2025 Assessment & Plan (1) Intractable nausea and vomiting: Plan: -stool + for Yersinia -cipro 400mg IV Q12 started -symptomatic treatment -zofran/compazine -IVF -F/U BMP (2) Gastroenteritis: Plan: -protonix IV -IVF (3) COVID-19: Plan: -supportive care Plan Heparin SQ for DVT px Admission and Anticipated Discharge Date Admission Date: May 21, 2025 Subjective PT states she feels better this am. She is tolerating her breakfast. Review of Systems Review of Systems: CONST: Negative for fever, body aches and chills. HENT: Negative for neck pain/stiffness, headache, congestion, sore throat, swelling. EYES: Negative for discharge/pain or vision changes. RESP: Negative for cough/hemoptysis and shortness of breath. CV: Negative chest pain, difficulty breathing, palpitations. ABD: Negative pain, +nausea, vomiting, diarrhea. : Negative increase frequency, dysuria, blood in urine or stool. MUSC: Negative for muscle aches, edema. SKIN: Negative rash, lesions/sores. NEURO: Negative headache, dizziness, weakness. Physical Exam Physical Exam: GENERAL APPEARANCE NAD, activity normal for age, well developed/ well nourished, no cyanosis, pallor, or diaphoresis. EYES lids/conjunctiva normal. EARS/NOSE/THROAT Mucous membranes moist, nares normal, lips/teeth normal uvula midline without oral pharyngeal erythema, exudate or swelling TMs normal bilaterally. No lymphangitis/lymphedema. HEAD/NECK normocephalic atraumatic, no facial trauma, neck is supple. RESPIRATORY respiratory effort normal, speaks in full sentences, no tripod position, no accessory muscle use. Lungs clear to auscultation without rhonchi, wheezes, rales CARDIAC Regular rate and rhythm, no edema. ABDOMINAL Soft, ND/NT. No evidence of fluid wave. No pulsatile masses on exam, rebound tenderness, Pickett sign or pain over Mcburney's point. MUSCLES/EXTREMITIES No abnormal range of motion, no swelling. SKIN Warm, pink and dry. No rashes, dermatoses, petechiae or lesions. NEUROLOGICAL Speech is clear and appropriate. Normal level of consciousness. Gait and coordination are normal. 5/5 strength in all extremities. PSYCH Normal mood and affect. Judgement/competence is appropriate Results & Data Results & Data Vital Signs (Past 12 Hours) Vital Signs Temp Pulse Pulse Resp BP BP Pulse Ox 05/22/25 07:28 05/22/25 06:55 36.9 C 70 18 130/76 97 05/22/25 00:05 37 C 69 18 142/80 H 97 05/22/25 00:01 62 18 124/70 95 05/21/25 22:30 60 18 133/72 97 05/21/25 22:00 60 22 140/79 96 O2 Del Method 05/22/25 07:28 Room Air 05/22/25 06:55 Room Air 05/22/25 00:05 Room Air 05/22/25 00:01 Room Air 05/21/25 22:30 05/21/25 22:00 PG Care Time/CCT Total # of Minutes Spent Total Time Spent with Patient: Total time spent is greater than 50% in coordination of care (as documented) at patient's floor/unit and/or counseling patient: Coding Level of Care Code 41296 SUB INP/OBS CARE 2/35MIN Diagnoses Intractable nausea and vomiting R11.2 Gastroenteritis K52.9 COVID-19 U07.1
[2025-05-22 23:34] VITALS: RESP 18
[2025-05-23] MEDS: LORazepam 0.5 MG TAB PO STA (04:57)
[2025-05-23 07:46] VITALS: BP 145/83; PULSE 63; TEMP 97.9; O2SAT 97
[2025-05-23 08:03] LABS: Hematocrit (blood only) 35.1 % (37.0-47.0); Hemoglobin 12.2 g/dl (12.0-16.0); Mean Corpuscular Hemoglobin 31.6 pg (25.0-34.0); Mean Corpuscular Volume 90.9 fL (80.0-100.0); Platelet Count 313 K/uL (130-400); RDW Standard Deviation 40.6 fL (36.4-46.3); Red Blood Count 3.86 M/uL (4.20-5.40); White Blood Count 5.82 K/ul (4.8-10.8)
[2025-05-23 08:18] LABS: Anion Gap 4.0 (3-11); Blood Urea Nitrogen 7.0 mg/dl (6-23); Calcium 8.9 mg/dl (8.6-10.3); Carbon Dioxide 29.0 mmol/L (21-32); Chloride 108.0 mmol/L (98-107); Creatinine Clr Calc Pharmacy 65.3 ml/min; Glucose 106.0 mg/dl (70-99(Fasting)); Potassium 3.9 mmol/L (3.5-5.1); Sodium 141.0 mmol/L (136-145)
[2025-05-23] MEDS: NICOTINE 14 MG/24 HR PATCH TD SCH (08:55)
[2025-05-23] MEDS: REMOVE NICODERM PATCH SCH (08:56)
--- NOTE | 2025-05-23 12:21 | Discharge Summary ---
Discharge Summary Date of Service May 23, 2025 Principal Dx & Hospital Course #1 = Principal Diagnosis (1) Intractable nausea and vomiting: -stool + for Yersinia -cipro 400mg IV Q12 started -symptomatic treatment -zofran/compazine -IVF -F/U BMP -symptoms resolved -d/c home on cipro po for 5 more days (2) Gastroenteritis: -protonix IV -IVF (3) COVID-19: -supportive care Plan Heparin SQ for DVT px Admission HPI Per Admitting Provider Pt is a 64 y/o female with no significant PMH who presents with with 10 days of feeling nausea and vomiting. She was seen twice in the ER, found to be COVID + 05/18, CT a/p negative for any acute pathology. Her labs do not show any acute abnormalities. She has been having intractable nausea/vomiting and unable to tolerate any PO. Pt is being admitted for further treatment of intractable symptoms of likely viral gastroenteritis. Discharge Exam GENERAL APPEARANCE NAD, activity normal for age, well developed/ well nourished, no cyanosis, pallor, or diaphoresis. EYES lids/conjunctiva normal. EARS/NOSE/THROAT Mucous membranes moist, nares normal, lips/teeth normal uvula midline without oral pharyngeal erythema, exudate or swelling TMs normal bilaterally. No lymphangitis/lymphedema. HEAD/NECK normocephalic atraumatic, no facial trauma, neck is supple. RESPIRATORY respiratory effort normal, speaks in full sentences, no tripod position, no accessory muscle use. Lungs clear to auscultation without rhonchi, wheezes, rales CARDIAC Regular rate and rhythm, no edema. ABDOMINAL Soft, ND/NT. No evidence of fluid wave. No pulsatile masses on exam, rebound tenderness, Pickett sign or pain over Mcburney's point. MUSCLES/EXTREMITIES No abnormal range of motion, no swelling. SKIN Warm, pink and dry. No rashes, dermatoses, petechiae or lesions. NEUROLOGICAL Speech is clear and appropriate. Normal level of consciousness. Gait and coordination are normal. 5/5 strength in all extremities. PSYCH Normal mood and affect. Judgement/competence is appropriate Discharge Plan Discharge Items Patient Disposition: Home - Self-Care Reason For Visit: NAUSEA AND DIARRHEA Discharge Diagnosis: yersina coli enteritis Condition on Discharge: Fair Activity: Resume your previous activity Non-emergency contact: Primary Care Provider Call non-emergency contact if: you have any medication questions Follow-up/Referrals: Roseanna Calles PA-C [Primary Care Provider] - Diet: Regular Addtl Attending Provider Instructions: Follow up with PMD in 1 week Pending Studies at Discharge: No Stand-Alone Forms: My [employer], Smoking Cessation Medications and DC Order Prescriptions: New ciprofloxacin HCl [Cipro] 500 mg tablet 500 mg PO BID Qty: 10 0RF Discharge Orders: Discharge Order (Routine); Ordered 05/23/25 Ordered By: Darrel Michael Admission Data Admit Date/Time: 05/21/25 17:50 Attending Provider: Darrel Michael Admit Provider: Darrel Michael Primary Care Provider: Roseanna Calles Other Providers: Oliver Kaur Hospital Stay Data Consultations 05/21/25 17:41 ED Decision to Admit Stat Pending Results Patient Have Any Pending Studies at Discharge: No Discharge Instructions Given to Patient (Per Discharging Provider) Follow up with PMD in 1 week Total Time Total Time Spent Total Time Spent (In Minutes): 50 Coding Level of Care Code 77236 INP/OBS DISCH >30 MIN Diagnoses Intractable nausea and vomiting R11.2 Gastroenteritis K52.9 COVID-19 U07.1
== END 2025-05-23 13:42 | disposition home or self-care (01) | DRG 371 ==
LOC: ED 15:20 → INTOOBSV 17:50 → 3E 17:50